=== PATIENT | male | born 1975 | race Caucasian/White ===

== ENCOUNTER 2020-12-30 09:58 | Emergency (ER) | payer MEDICARE ==
[~2020-12-30 09:58] MED LIST: BACTRIM DS TAB1 EACH PO; DICLOFENAC SODI75 MG PO; KEFLEX500 MG PO
[2020-12-30 11:21] LABS: BASOPHIL 0.8 % (0-2); EOSINOPHIL 2.8 % (0-5); HCT 49.1 % (42.0-52.0); HGB 16.7 g/dl (13.2-18.0); LYMPHOCYTE 22.2 % (15-48); MCH 29.7 pg (25.0-31.0); MCV 87.2 fL (78.0-100.0); MONOCYTE 7.9 % (0-12); MPV 9.9 fL (6.0-9.5); NRBC 0; PLT 321 K/uL (150-400); RBC 5.63 M/uL (4.70-6.00); RDW 13.4 % (11.5-14.0)
[2020-12-30 11:29] LABS: ALBUMIN 3.4 g/dL (3.4-5.0); BILIRUBIN - TOTAL 0.8 mg/dL (0.2-1.0); C-REACTIVE PROTEIN 0.9 mg/dL (<=0.90); CREATININE 0.88 mg/dL (0.67-1.17); GLOBULIN (CALCULATION) 3.8 g/dL; POTASSIUM 3.7 mmol/L (3.5-5.1); TOTAL PROTEIN 7.2 g/dL (6.4-8.2); URIC ACID 5.4 mg/dL (3.5-7.2)
[2020-12-30] MEDS ORDERED: NORCO 5-325 TA1 EACH PO ×3 (11:46→12:49)
[2020-12-30] MEDS ORDERED: INDOCIN25 MG PO ×3 (11:46→12:49)
== END 2020-12-30 12:11 | disposition home or self-care (01) ==
LOC: FER 09:58
PROVIDERS: Emergency Medicine
DX: M25.531 Pain in right wrist (principal); F17.290 Nicotine dependence, other tobacco product, uncomplicated
CPT/HCPCS: 36415; 73110; 80053; 84550; 85025; 86140; J1170; J1885; J2405

== ENCOUNTER 2021-01-14 07:20 | Emergency (ER) | payer MEDICARE ==
[~2021-01-14 07:20] MED LIST changes: +INDOCIN25 MG PO; +NORCO 5-325 TA1 EACH PO
[2021-01-14] MEDS ORDERED: NAPROXEN500 MG PO (09:17)
== END 2021-01-14 09:35 | disposition home or self-care (01) ==
LOC: FER 07:20
DX: M77.8 Other enthesopathies, not elsewhere classified (principal); I10 Essential (primary) hypertension
CPT/HCPCS: 73130